=== PATIENT | female | born 1990 | race American Indian/Alaskan Native ===

== ENCOUNTER 2019-04-17 20:45 | Emergency (ER) | payer MEDICAID ==
[2019-04-17] MEDS ORDERED: Levothyroxine 112 MCG Tab PO ONE (22:08)
--- NOTE | 2019-04-17 22:11 | EDM.PDOC ---
ED HPI GENERAL MEDICAL PROBLEM - General Chief Complaint: General Stated Complaint: THYROID PROBLEMS Time Seen by Provider: 04/17/19 21:55 Source of Information: Reports: Patient History Limitations: Reports: No Limitations - History of Present Illness INITIAL COMMENTS - FREE TEXT/NARRATIVE: 28-year-old female with nausea and vomiting, anxiety due to withdrawal from medications. She is normally on 225 mg of extended release Effexor daily, and 75 g of Synthroid. She was "kicked out of her house" over a week ago and is been without her medications. This is the first chance she's had to come in and get medicine. She is going to establish primary care at the clinic here in the next few days. No fevers or chills, no headache. Onset: Gradual Duration: Day(s): (Worsening over the last several days) Associated Symptoms: Reports: Nausea/Vomiting. Denies: Shortness of Breath STOMACH Pain Score (Numeric/FACES): 6 - Related Data Allergies Allergy/AdvReac Type Severity Reaction Status Date / Time No Known Allergies Allergy Verified 04/17/19 21:31 Home Meds: Home Meds Levothyroxine 1 tab PO ACBREAKFAST 04/17/19 [History] Venlafaxine HCl [Venlafaxine ER] 225 mg PO DAILY 04/17/19 [History] Past Medical History Cardiovascular History: Reports: Hypertension Gastrointestinal History: Reports: GERD Genitourinary History: Reports: Renal Calculus, STD, UTI, Recurrent [employer] History: Reports: Neurological History: Reports: Headaches, Chronic, Migraines Psychiatric History: Reports: Anxiety, Depression Endocrine/Metabolic History: Reports: Hypothyroidism, Obesity/BMI 30+ - Past Surgical History GI Surgical History: Reports: Cholecystectomy Female Surgical History: Reports: Other (See Below) Social & Family History - Tobacco Use Smoking Status *Q: Current Some Day Smoker Years of Tobacco use: 15 Packs/Tins Daily: 0.1 - Caffeine Use Caffeine Use: Reports: Coffee, Energy Drinks, Soda, Tea - Recreational Drug Use Recreational Drug Use: Yes Recreational Drug Type: Reports: Marijuana/Hashish Recreational Drug Use Frequency: Socially ED ROS GENERAL - Review of Systems Review Of Systems: See Below Constitutional: Reports: Malaise, Decreased Appetite. Denies: Fever HEENT: Reports: No Symptoms Respiratory: Denies: Shortness of Breath Cardiovascular: Denies: Chest Pain GI/Abdominal: Reports: Abdominal Pain, Nausea, Vomiting : Reports: No Symptoms Skin: Reports: No Symptoms Neurological: Reports: Dizziness. Denies: Headache ED EXAM, GENERAL - Physical Exam Exam: See Below Exam Limited By: No Limitations General Appearance: Alert, No Apparent Distress, Other (Nausea with occasional vomiting but no significant distress) Eye Exam: Bilateral Eye: Normal Inspection (No jaundice, good hydration) Respiratory/Chest: No Respiratory Distress, Lungs Clear Cardiovascular: Regular Rate, Rhythm. No: Tachycardia Neurological: Alert, Oriented Psychiatric: Normal Affect, Normal Mood Skin Exam: Warm, Dry Course - Vital Signs Last Recorded V/S: Last Vital Signs Temp 97.8 F 04/17/19 21:38 Pulse 93 04/17/19 21:38 Resp 16 04/17/19 21:38 BP 155/91 H 04/17/19 21:38 Pulse Ox 100 04/17/19 21:38 - Orders/Labs/Meds Meds: Medications Discontinued Medications Generic Name Dose Route Start Last Admin Trade Name Cr PRN Reason Stop Dose Admin Levothyroxine Sodium 112 mcg 04/17/19 22:08 04/17/19 22:43 Levothyroxine PO 04/17/19 22:09 112 mcg ONETIME ONE Administration Ondansetron HCl 4 mg 04/17/19 22:16 04/17/19 22:22 Zofran Odt PO 04/17/19 22:17 4 mg ONETIME ONE Administration Venlafaxine HCl 225 mg 04/17/19 22:20 04/17/19 22:44 Effexor Xr PO 04/17/19 22:21 225 mg ONETIME ONE Administration Venlafaxine HCl Confirm 04/17/19 22:28 04/17/19 22:45 Effexor Xr Administered 04/17/19 22:29 Not Given Dose 225 mg .ROUTE .[facility] - Re-Assessments/Exams Free Text/Narrative Re-Assessment/Exam: 04/17/19 22:26 Patient was given 0.4 mg sublingual Zofran, followed by 225 mg of extended release Effexor and 0.112 mg Synthroid. Prescriptions were given for 1 week's supply of 225 mg daily extended release Effexor and 75 g Synthroid. She is to recheck with her primary doctor before her medicines run out. 04/17/19 22:53 Patient was discharged to fill her prescriptions tomorrow, she did get some relief from the sublingual Zofran. Departure - Departure Time of Disposition: 23:01 Disposition: Home, Self-Care 01 Clinical Impression: Anxiety Hypothyroidism Qualifiers: Hypothyroidism type: unspecified Qualified Code(s): E03.9 - Hypothyroidism, unspecified Withdrawal syndrome Qualifiers: Substance type: other psychoactive substance Qualified Code(s): F19.939 - Other psychoactive substance use, unspecified with withdrawal, unspecified - Discharge Information Instructions: Nausea and Vomiting, Adult Referrals: PCP,None [Primary Care Provider] - Forms: ED Department Discharge Care Plan Goals: Fill prescriptions tomorrow and start taking daily as prescribed. Establish primary care in the next week to continue your medications and progress to any other workup needed.
[2019-04-17] MEDS ORDERED: Ondansetron 4 MG Tab.DIS PO ONE (22:16)
[2019-04-17] MEDS ORDERED: Venlafaxine 37.5 MG Cap.ER PO ONE (22:20)
[2019-04-17] MEDS ORDERED: Venlafaxine 75 MG Cap.ER ONE (22:28)
[2019-04-18] MEDS ORDERED: Venlafaxine 75 MG Cap.ER PO ONE (22:07)
== END 2019-04-17 23:01 | disposition home or self-care (01) ==
LOC: JP.ED 20:45
DX: F19.939 Other psychoactive substance use, unspecified with withdrawal, unspecified (principal); E03.9 Hypothyroidism, unspecified; I10 Essential (primary) hypertension; F32.9 Major depressive disorder, single episode, unspecified; F17.210 Nicotine dependence, cigarettes, uncomplicated; Z87.442 Personal history of urinary calculi; Z79.899 Other long term (current) drug therapy
CPT/HCPCS: 99283; A9270

== ENCOUNTER 2025-07-13 20:12 | Emergency (ER) | payer MEDICAID ==
[2025-07-13 21:11] LABS: BASOPHILS PERCENT AUTO 0.2 % (0.1-1.3); EOSINOPHILS ABSOLUTE AUTO 0.05 K/uL (0.00-0.40); EOSINOPHILS PERCENT AUTO 1.1 % (0.0-5.4); IMMATURE GRAN PERCENT AUTO 0.2 % (0.0-0.7); LYMPHOCYTES ABSOLUTE AUTO 0.77 K/uL (0.8-3.3); LYMPHOCYTES PERCENT AUTO 16.5 % (11.4-47.7); MONOCYTES ABSOLUTE AUTO 0.52 K/uL (0.20-0.90); MONOCYTES PERCENT AUTO 11.2 % (3.3-12.6); NEUTROPHILS ABSOLUTE AUTO 3.30 K/uL (1.0-7.6); NEUTROPHILS PERCENT AUTO 70.8 % (40.0-78.1); PLATELET COUNT,PLT 178 K/uL (130-375); RED BLOOD CELL COUNT 4.06 M/uL (3.77-5.24); WHITE BLOOD CELL COUNT,WBC 4.7 K/uL (3.2-11.0)
[2025-07-13 21:12] LABS: BASOPHILS ABSOLUTE AUTO 0.01 K/uL (0.00-0.10); IMMATURE GRAN ABSOLUTE AUTO 0.01 K/uL (0.00-0.23)
[2025-07-13 21:13] LABS: APPEARANCE,URINE SLIGHTLY CLOUDY (CLEAR); GLUCOSE,URINE NEGATIVE (NEGATIVE); OCCULT BLOOD,URINE LARGE (NEGATIVE)
[2025-07-13] MEDS: Iopamidol 612 MG/ML 100 ML Bottle IV PRN (21:22)
[2025-07-13 21:26] LABS: SQUAMOUS EPITHELIAL CELLS,UR RARE /HPF; UROTHELIAL CELLS,URINE NOT SEEN /HPF
[2025-07-13] MEDS: Lactated Ringers 1,000 ML IV ONE (21:35)
[2025-07-13 21:37] LABS: BLOOD UREA NITROGEN,BUN 7.0 mg/dL (7-18); CARBON DIOXIDE,CO2 26.0 mmol/L (21-32); CHLORIDE,CL 106.0 mmol/L (100-108); CREATININE 0.8 mg/dL (0.6-1.0); EST CRCL DRUG DOSING (CG) 76.89 mL/min; ESTIMATED GFR 98.0 mL/min (>60); GLUCOSE RANDOM 108.0 mg/dL (74-106); POTASSIUM,K 3.7 mmol/L (3.6-5.2); SODIUM,NA 142.0 mmol/L (140-148)
[2025-07-13 21:57] LABS: CORONAVIRUS COVID-19 NAA NEGATIVE (NEGATIVE); INFLUENZA A NAA NEGATIVE (NEGATIVE); INFLUENZA B NAA NEGATIVE (NEGATIVE); RESPIRATORY SYNCYTIAL VIR NAA NEGATIVE (NEGATIVE)
[2025-07-13] MEDS: LORazepam 2 MG/ML SDV IVPUSH ONE (23:50)
== END 2025-07-13 23:51 | disposition home or self-care (01) ==
LOC: JP.ED 20:12
DX: F41.9 Anxiety disorder, unspecified (principal); R11.2 Nausea with vomiting, unspecified; R19.7 Diarrhea, unspecified; I10 Essential (primary) hypertension; E03.9 Hypothyroidism, unspecified; E66.9 Obesity, unspecified; Z90.49 Acquired absence of other specified parts of digestive tract; Z79.890 Hormone replacement therapy; Z79.899 Other long term (current) drug therapy
CPT/HCPCS: 36415; 74177; 80048; 81001; 83605; 84484; 84703; 85025; 87637; 96361; 96374; 99284; J1790; J7120; Q9967; 93010; 99283